=== PATIENT | male | born 1950 | race Caucasian/White ===

== ENCOUNTER 2017-11-02 23:13 | Emergency (ER) | payer OTHER ==
--- NOTE | 2017-11-02 23:23 | ED Physician Documentation ---
Sore Throat/Dental Pain - HISTORIAN Historian: patient - HPI Stated Complaint: dental pain Chief Complaint: Dental Pain Onset: days ago (2) Context: Fractured Tooth Associated Symptoms: moderate. denies: fever, chills, sore throat, unable to swallow, runny nose, congestion, swollen glands Worsened By: nothing Further Comments: yes (He states there is a broken tooth that he has had increasing swelling and tenderness from since about 3 pm. He feels the tooth started to hurt several days ago. he does have a dr appt in am but woke this after noon and had swelling and his chin was hurting. He does not take meds so no OTC meds. HE has no other complaints. He does smoke) - ROS CONST: no problems CVS/RESP: none NEURO/PSYCH: none - PAST HX Past History: none Allergies/Adverse Reactions: Allergies Allergy/AdvReac Type Severity Reaction Status Date / Time No Known Allergies Allergy Unverified 11/02/17 23:38 Home Medications: Ambulatory Orders Medication Instructions Recorded NK 11/02/17 - SOCIAL HX Smoking History: cigarettes Alcohol Use: none Drug Use: none - FAMILY HX Family History: No - REVIEWED ASSESSMENTS Nursing Assessment Reviewed: Yes Vitals Reviewed: Yes Dental Pain Physical Exam - EXAM General Appearance: no acute distress, alert Head/Neck: head nml inspection. No: no lymphadenopathy, pain over sinuses Eyes: eyes nml inspection Mouth/Throat: lips nml, gums nml, pharynx nml, voice nml, no drooling, no air way problems, membranes nml, other (he does have a broken tooth front lower. Swelling noted to right jaw line . No pain to touch. ) Ear/Nose: nml inspection Respiratory: no resp. distress, breath sounds nml CVS: reg. rate & rhythm, heart sounds nml Abdomen: soft, no distension Extremities: non-tender Skin: warm/dry, normal color Neuro/Psych: none Discharge Clincal Impression: Pain, dental Referrals: Primary Doctor,No [Primary Care Provider] - 2 Days Comments: 1. Continue OTC meds 2. warm salt water gargles 3. See Dentist 4. return to ER for concerns Condition: Good Disposition: 01 HOME, SELF-CARE Decision to Admit: NO Date of Decison to Admit: 11/02/17 Decision Time: 23:50
[2017-11-02 23:48] VITALS: BP 146/74
[2017-11-02] MEDS: AMOXICILLIN 500 MG CAPSULE PO ONE (23:50)
[2017-11-02] MEDS: predniSONE 20 MG TABLET PO ONE (23:50)
== END 2017-11-02 23:50 | disposition home or self-care (01) ==
LOC: ED 23:13
DX: K08.89 Other specified disorders of teeth and supporting structures (principal)
CPT/HCPCS: 99282